=== PATIENT | male | born 1960 | race Two or more races ===

== ENCOUNTER → 2018-09-02 | Outpatient (CLI) | payer OTHER | END | disposition home or self-care (01) | LOC: RAD 501 09:33 | DX: J98.4 Other disorders of lung (principal) ==

== ENCOUNTER 2021-04-11 14:07 | Outpatient (CLI) | payer OTHER | END 2021-04-11 14:20 | disposition home or self-care (01) | LOC: RAD 14:07 | PROVIDERS: ATTEND Internal Medicine Rheumatology | DX: R07.89 Other chest pain (principal); Z13.89 Encounter for screening for other disorder ==

== ENCOUNTER 2022-02-19 07:36 | Outpatient (CLI) | payer OTHER | END 2022-02-19 10:52 | disposition home or self-care (01) | LOC: TOM 07:36 | PROVIDERS: ATTEND Urology | DX: R31.0 Gross hematuria (principal) ==

== ENCOUNTER → 2022-05-14 | Outpatient (CLI) | payer OTHER | END | disposition home or self-care (01) | LOC: RAD 14:14 | PROVIDERS: ATTEND Internal Medicine Rheumatology | DX: R76.11 Nonspecific reaction to tuberculin skin test without active tuberculosis (principal) ==

== ENCOUNTER 2025-02-08 07:49 | Outpatient (CLI) | payer OTHER | END 2025-02-08 07:50 | disposition home or self-care (01) | LOC: SONOGRAMA 07:49 | DX: D72.820 Lymphocytosis (symptomatic) (principal); Z11.1 Encounter for screening for respiratory tuberculosis ==